=== PATIENT | female | born 1985 | race Caucasian/White ===

== ENCOUNTER → 2017-03-15 | Outpatient (CLI) | payer OTHER | LOC: OD 15:51 | PROVIDERS: ATTEND Specialist | DX: K76.89 Other specified diseases of liver (principal) | CPT/HCPCS: 36415; 82105; 82378 ==

== ENCOUNTER 2017-03-23 09:27 | Day surgery (SDC) | payer OTHER ==
[~2017-03-23 09:27] MED LIST: EPINEPHRINE INJ 1 MG/10 ML DISP.SYRIN ONE; FENTANYL CITRATE INJ/PF 100 MCG/2 ML AMPUL ONE; FLUMAZENIL INJ 0.5 MG/5 ML VIAL ONE; GLYCOPYRROLATE INJ 0.4 MG/2 ML VIAL ONE; NALOXONE HCL INJ/PF 0.4 MG/1 ML SDV ONE; ONDANSETRON HCL INJ/PF 4 MG/2 ML SDV ONE
[2017-03-23] MEDS: MIDAZOLAM 2 MG/2 ML INJ ONE ×2 (10:29→10:34)
[2017-03-23 11:34] LABS: ABSOLUTE EOSINOPHILS # (AUTO) 0.1 10^3/uL (0.0-0.6); ABSOLUTE LYMPHOCYTES (AUTO) 1.7 10^3/uL (0.5-4.7); ABSOLUTE MONOCYTES (AUTO) 0.4 10^3/uL (0.1-1.4); ABSOLUTE NEUT (AUTO) 1.8 10^3/uL (1.7-8.2); BASOPHILS % (AUTO) 1.2 % (0-2); HEMATOCRIT 38.5 % (36.0-47.0); HEMOGLOBIN 12.8 g/dL (12.0-15.5); HGB HCT DIFFERENCE -0.1; LYMPHOCYTES % (AUTO) 41.8 % (13-45); MEAN CORPUSCULAR HEMOGLOBIN 28.6 pg (27.0-33.4); MEAN CORPUSCULAR HGB CONC 33.2 g/dL (32.0-36.0); MEAN CORPUSCULAR VOLUME 86 fl (80-97); MONOCYTES % (AUTO) 9.7 % (3-13); RED BLOOD COUNT 4.47 10^6/uL (3.72-5.28); RED CELL DISTRIBUTION WIDTH 15.6 % (11.5-14.0); SEGMENTED NEUTROPHILS % (AUTO) 45.3 % (42-78)
[2017-03-23 11:35] LABS: ALANINE AMINOTRANSFERASE 33 U/L (9-52); ALBUMIN 3.9 g/dL (3.5-5.0); ALKALINE PHOSPHATASE 59 U/L (38-126); AMYLASE 64 U/L (30-110); ANION GAP 9 (5-19); ASPARTATE AMINO TRANSFERASE 19 U/L (14-36); BILIRUBIN,DIRECT 0.3 mg/dL (0.0-0.4); BILIRUBIN,TOTAL 0.7 mg/dL (0.2-1.3); BLOOD UREA NITROGEN 13 mg/dL (7-20); CALCIUM 9.2 mg/dL (8.4-10.2); CARBON DIOXIDE 28 mmol/L (22-30); CHLORIDE 105 mmol/L (98-107); CREATININE RESULT 0.68 mg/dL (0.52-1.25); GLUCOSE 89 mg/dL (75-110); LIPASE 78.4 U/L (23-300); POTASSIUM 4.2 mmol/L (3.6-5.0); SODIUM 142.4 mmol/L (137-145); TOTAL PROTEIN 6.7 g/dL (6.3-8.2)
[2017-03-23 12:11] VITALS: BP 108/73
--- NOTE | 2017-03-23 12:19 | DISCHARGE SUMMARY E ---
Discharge Summary NAME: KEITH GLASS : 1985 AGE: 31Y ADMITTED: 03/23/2017 DISCHARGED: 03/23/2017 PROCEDURE: EGD, biopsy. HISTORY: Patient is a 31-year-old female who presented with abdominal pain. Underwent upper endoscopy that shows no ulcers. She did have erosive gastritis with mild esophagitis, mild duodenitis. Patient does have history of fibromyalgia. She does have some history of nodules in her liver, kidney, stones. Today's upper scope shows no evidence of ulcers, no evidence of malignancy. DISCHARGE PLAN: Soft diet. Start patient on PPI pending biopsy. Will obtain chem profile and I will obtain alpha fetoprotein CA because of history of nodularity on her liver and patient to see us in the office in the next few days. DICTATING PHYSICIAN: CARYL MONTELONGO M.D. [id number] PHY#: [id number] ID: [id number] JOB#: [id number] ACCT: [id number] cc:[facility] CARYL MONTELONGO M.D. >
--- NOTE | 2017-03-23 12:22 | OPERATIVE REPORT E ---
Operative Report NAME: KEITH GLASS : 1985 AGE: 31Y DATE OF SURGERY: 03/23/2017 ROOM: PREOPERATIVE DIAGNOSIS: Abdominal pain. POSTOPERATIVE DIAGNOSES: 1. Gastritis, moderate. 2. Esophagitis, mild. 3. Duodenitis, mild. PROCEDURES: 1. Esophagoscopy. 2. Gastroscopy. 3. Duodenoscopy. SURGEON: CARYL MONTELONGO M.D. TISSUE REMOVED OR ALTERED: None. ANESTHESIA: Versed 4, fentanyl 50. DESCRIPTION OF PROCEDURE: After adequate sedation, baby scope passed under guided vision, no difficulties. Esophagoscopy junction at 35. Mild esophagitis. No ulcers. No hernia. Gastroscopy: Prepyloric erosions consistent with erosive gastritis, mild to moderate. Biopsy obtained H. pylori. Duodenoscopy: The bulb is smooth, no ulcers. Descending duodenum: Mild duodenitis. CONCLUSION: 1. Esophagitis, mild. 2. Gastritis, mild, moderate. 3. Duodenitis, mild. No ulcers, no bleeding. Patient tolerated the procedure well. Discharged to her room in stable condition. PLAN: Soft diet. Hold aspirin. Continue PPI. DICTATING PHYSICIAN: CARYL MONTELONGO M.D. [id number] PHY#: [id number] ID: [id number] JOB#: [id number] ACCT: [id number] cc:CARYL MONTELONGO M.D. >
== END 2017-03-23 12:15 | disposition home or self-care (01) ==
LOC: END 09:27
PROVIDERS: ATTEND Specialist
PROC: 0DB68ZX Excision of Stomach, Via Natural or Artificial Opening Endoscopic, Diagnostic (ICD-10-PCS; principal; 2017-03-23 10:00)
DX: K29.80 Duodenitis without bleeding (principal); K31.9 Disease of stomach and duodenum, unspecified; K20.9 Esophagitis, unspecified; M79.7 Fibromyalgia; Z88.8 Allergy status to other drugs, medicaments and biological substances
CPT/HCPCS: 43239; 36415; 82150; 83690; 85025; 80053; 88342 ×2; 88305 ×2; J2250; J3010; J2405; J0171; J2310; J3490